=== PATIENT | female | born 1995 | race Hispanic/Latino ===

== ENCOUNTER 2017-07-12 05:30 | Inpatient (IN) | payer MEDICAID, OTHER, SELFPAY ==
[2017-07-12] MEDS ORDERED: Ondansetron HCl/PF 4 MG/2 ML Vial IVP PRN ×3 (05:42→13:40)
[2017-07-12] MEDS ORDERED: Misoprostol 200 MCG TAB PR PRN (05:42)
[2017-07-12] MEDS ORDERED: Ibuprofen 800 MG TAB PO PRN (05:42)
[2017-07-12] MEDS ORDERED: Lidocaine 1% (PF) 30 ML VIAL SC PRN (05:42)
[2017-07-12] MEDS ORDERED: Acetaminophen 500 MG TAB PO PRN (05:42)
[2017-07-12] MEDS ORDERED: Zolpidem Tartrate 5 MG TAB PO PRN ×2 (05:42→13:40)
[2017-07-12] MEDS ORDERED: LR 500 ML/Oxytocin 10 units 500 ML IV SCH (05:42)
[2017-07-12] MEDS ORDERED: Diphenoxylate HCl/Atropine Tablet PO PRN ×2 (05:42)
[2017-07-12] MEDS ORDERED: HYDROcodone/Acetaminophen 5/325 mg Tablet PO PRN ×2 (05:42)
[2017-07-12] MEDS ORDERED: Promethazine HCl 25 MG/ML VIAL IM PRN ×2 (05:42→11:37)
[2017-07-12] MEDS ORDERED: LR / Pitocin 40 units/1000 ml 1,000 ML IV PRN (05:42)
[2017-07-12] MEDS ORDERED: Docusate 100 MG CAP PO PRN (05:42)
[2017-07-12] MEDS ORDERED: Penicillin G Potassium 5 MILL.UNITS in Sodium Chloride 0.9% 100 ML IVPB SCH (05:45)
[2017-07-12 06:10] VITALS: BMI 30.5
[2017-07-12] MEDS: Lactated Ringer's 1,000 ML IV SCH ×2 (06:25→11:04)
[2017-07-12] MEDS ORDERED: Penicillin G Potassium 5 MILL.UNITS VIAL ONE (06:33)
[2017-07-12 06:47] LABS: Hematocrit 32.6 % (36.0-47.0); Mean Platelet Volume 9.1 fL (7.4-10.4); Red Blood Cell (RBC) Count 3.99 mill/uL (4.20-5.40); White Blood Cell (WBC) Count 10.8 thou/uL (4.8-10.8)
[2017-07-12] MEDS ORDERED: Fentanyl 4 mcg/Marc 0.1% Cadd 100 ML ONE (10:31)
[2017-07-12] MEDS: Penicillin G 2.5 MILL.units 2.5 MILL.UNITS in Premix Bag 1 BAG IVPB SCH ×2 (11:00→13:48)
[2017-07-12] MEDS ORDERED: Lactated Ringer's 500 ML IV PRN (11:37)
[2017-07-12] MEDS ORDERED: Acetaminophen 325 MG TAB PO PRN (11:37)
[2017-07-12] MEDS ORDERED: Eucerin (Mineral Oil/Petrolatum,White) 30 gm Jar TOP PRN (11:37)
[2017-07-12] MEDS ORDERED: Fentanyl 4 mcg/Marc 0.1% Cadd 100 ML in Premix Bag 1 BAG EPIDURAL SCH (11:37)
[2017-07-12] MEDS ORDERED: ePHEDrine/0.9% NaCl/PF SYRINGE 50 mg/10 ml SLOW IVP PRN (11:37)
[2017-07-12] MEDS ORDERED: Naloxone HCl 0.4 mg/ml Vial IV PRN ×2 (11:37)
[2017-07-12] MEDS ORDERED: diphenhydrAMINE 50 MG/ML VIAL IVP PRN (11:37)
[2017-07-12] MEDS ORDERED: Benzocaine/Menthol 20-0.5% 60 ML CAN TOP PRN ×2 (13:35→13:40)
[2017-07-12] MEDS ORDERED: Adacel (T-DAP) 0.5 ML VIAL IM ONE (13:35)
[2017-07-12] MEDS ORDERED: Preparation H Ointment 28 GM TUBE PR PRN (13:35)
[2017-07-12] MEDS ORDERED: diphenhydrAMINE 25 MG CAP PO PRN ×2 (13:35→13:40)
[2017-07-12] MEDS ORDERED: Lanolin Ointment 7 GM TUBE TOP PRN ×2 (13:35→13:40)
[2017-07-12] MEDS ORDERED: Milk Of Magnesia 30 ML UDCUP PO PRN ×2 (13:35→13:40)
[2017-07-12] MEDS ORDERED: Bisacodyl 10 MG SUPP PR PRN ×2 (13:35→13:40)
[2017-07-12] MEDS ORDERED: Acetaminophen/Codeine 30-300mg Tablet PO PRN ×2 (13:40)
[2017-07-12] MEDS ORDERED: LR / Pitocin 40 units/1000 ml 1,000 ML IV SCH ×2 (13:45)
[2017-07-12] MEDS ORDERED: Misoprostol 200 MCG TAB VAG SCH ×2 (13:45)
[2017-07-12] MEDS ORDERED: Ibuprofen 800 MG TAB PO SCH (14:00)
[2017-07-12] MEDS: Ibuprofen 800 MG TAB PO SCH ×2 (15:30→21:25)
[2017-07-12] MEDS ORDERED: Ferrous Sulfate 325 MG TAB PO SCH (17:00)
[2017-07-12] MEDS: Ferrous Sulfate 325 MG TAB PO SCH (18:09)
[2017-07-12] MEDS ORDERED: Docusate Calcium (SURFAK) 240 MG CAP PO SCH (21:00)
[2017-07-12] MEDS: Docusate Calcium (SURFAK) 240 MG CAP PO SCH (21:25)
[2017-07-12] MEDS ORDERED: Lidocaine 2% MPF 10 ML AMP (For Epidural Use) ONE (22:31)
[2017-07-13] MEDS: Ibuprofen 800 MG TAB PO SCH ×3 (06:29→22:04)
[2017-07-13] MEDS: Docusate Calcium (SURFAK) 240 MG CAP PO SCH ×2 (08:55→22:03)
[2017-07-13] MEDS: Ferrous Sulfate 325 MG TAB PO SCH ×2 (08:55→18:26)
[2017-07-13] MEDS: Prenatal Vitamin 1 TAB PO SCH (08:56)
[2017-07-13] MEDS ORDERED: Prenatal Vitamin 1 TAB PO SCH (09:00)
[2017-07-13] MEDS ORDERED: Acetaminophen/Codeine 30-300mg Tablet PO PRN ×2 (13:35)
[2017-07-13] MEDS ORDERED: Zolpidem Tartrate 5 MG TAB PO PRN (13:41)
[2017-07-14] MEDS: Ibuprofen 800 MG TAB PO SCH ×2 (06:13→16:15)
[2017-07-14 09:53] VITALS: BP 113/72; TEMP 99
[2017-07-14] MEDS: Prenatal Vitamin 1 TAB PO SCH (11:58)
[2017-07-14] MEDS: Ferrous Sulfate 325 MG TAB PO SCH ×2 (11:58→16:42)
[2017-07-14] MEDS: Docusate Calcium (SURFAK) 240 MG CAP PO SCH (11:58)
== END 2017-07-14 17:43 | disposition home or self-care (01) | DRG 775 ==
LOC: L&D 05:36 → 3SE 16:57
PROVIDERS: ADMIT Obstetrics & Gynecology; ATTEND Obstetrics & Gynecology
PROC: 10E0XZZ Delivery of Products of Conception, External Approach (ICD-10-PCS; principal; 2017-07-12)
PROC: 3E0P3VZ Introduction of Hormone into Female Reproductive, Percutaneous Approach (ICD-10-PCS; 2017-07-12)
DX: O99.824 Streptococcus B carrier state complicating childbirth (principal); Z37.0 Single live birth; Z3A.39 39 weeks gestation of pregnancy
CPT/HCPCS: 85027; 86780; 87340; 90715; J0595; J2001; J2540; J7050; J7120